=== PATIENT | female | born 1990 | race Hispanic/Latino ===

== ENCOUNTER 2021-11-07 11:57 | Emergency (ER) | payer OTHER, SELFPAY ==
[2021-11-07] VITALS (12 sets, daily range): BP systolic 80–111; BP diastolic 49–71; PULSE 71–95; RESP 16; TEMP 36.1–36.7; O2SAT 95–99; BMI 24.5
[2021-11-07 15:18] LABS: Add Manual Diff / Slide Review NO; Basophils Absolute Auto 0 /uL (0-100); Basophils Percent Auto 0.2 % (0-2); Eosinophils Absolute Auto 0 /uL (0-450); Eosinophils Percent Auto 0.4 % (2-4); Hematocrit 32.6 % (36-46); Hemoglobin 11.5 g/dL (12.0-16.0); Lymphocytes Absolute Auto 900 /uL (1100-4500); Lymphocytes Percent Auto 20.8 % (25-40); Mean Corpuscular HGB Conc 35.3 % (30-36); Mean Corpuscular Hemoglobin 30.8 PG (26-34); Mean Corpuscular Volume 87.4 fL (80-100); Monocytes Absolute Auto 400 /uL (0-900); Monocytes Percent Auto 9.3 % (3-14); Neutrophils Absolute Auto 3200 /uL (1500-7000); Neutrophils Percent Auto 69.3 % (50-75); Platelet Count 215 X10^3/uL (150-400); Red Blood Cell Count 3.73 X10^6/uL (4.0-5.2); Red Cell Distribution Width 12.6 % (11.6-14.8); White Blood Cell Count 4.6 X10^3/uL (4.5-11.0)
--- NOTE | 2021-11-07 15:23 | ED_ITS ---
HPI - Nausea/Vomiting/Diarrhea <CHELE Maier - Last Filed: 11/07/21 19:13> General Chief complaint: Nausea/Vomiting/Diarrhea Stated complaint: 13 Wks Preg/Nausea/COVID Time Seen by Provider: 11/07/21 14:57 Source: patient Mode of arrival: Ambulatory History of Present Illness HPI Narrative: 30-year-old female who is 13 weeks presents to the emergency department complaining of nausea, vomiting, and some diarrhea since this morning which is consistent with her morning sickness. She reports that she has been unable to keep anything down today, she also reports that her urine is darker in color than usual. Patient denies any vaginal bleeding, abdominal pain, or cramping. Patient denies any recent fever. Patient does endorse testing positive for COVID on 10/26/2021 but states that her symptoms have resolved. Patient endorses feeling fatigued, more tired than usual, and having constant nausea. She denies any syncope, weakness, shortness of breath, chest pain, or any other symptoms. Related Data Previous Rx's Medication Instructions Recorded ondansetron 4 mg disintegrating 4 mg PO Q8H PRN #14 tab 11/07/21 tablet Allergies Allergy/AdvReac Type Severity Reaction Status Date / Time ciprofloxacin [From Cipro] Allergy Verified 11/07/21 12:36 Review of Systems <CHELE Maier - Last Filed: 11/07/21 19:13> Review of Systems Narrative: General: denies fever, chills Head/Neck: denies headache, neck pain Eyes: denies visual changes, eye pain Cardio: denies chest pain, palpitations Respiratory: denies shortness of breath, cough GI: denies abdominal pain, endorses having nausea, vomiting, and diarrhea since this morning : denies dysuria, hematuria MSK: denies joint pain, muscle weakness Skin: denies rash, itching Neuro: denies numbness, tingling Patient History <CHELE Maier - Last Filed: 11/07/21 19:13> Social History Smoking Status: Unknown if ever smoked Smoking Status: Unknown if ever smoked alcohol intake frequency: holidays/special occasions only Substance Use Type: does not use Exam <CHELE Maier - Last Filed: 11/07/21 19:13> Narrative Exam Narrative: Independently reviewed vitals signs and nursing notes. General: Awake, alert, nontoxic, no cardiorespiratory distress, appears tired Head/Neck: Atraumatic, neck full range of motion Eyes: EOMI, conjunctiva normal Nose: nares patent, no rhinorrhea Mouth/Throat: moist mucus membranes, posterior pharynx normal, no oral lesions Cardio: Regular rate and rhythm, no peripheral edema Respiratory: respirations unlabored without wheezing, stridor, or rales. No retractions. GI: Abdomen nontender, gravid MSK: Moves all extremities, neurovascularly intact Skin: Normal capillary refill, no rash Neuro: Normal speech and cognition, normal gait Initial Vital Signs Initial Vital Signs: Vital Signs Temperature 97.0 F L 11/07/21 12:36 Pulse Rate 95 H 11/07/21 12:36 Respiratory Rate 16 11/07/21 12:36 Blood Pressure 102/67 11/07/21 12:36 Pulse Oximetry 96 11/07/21 12:36 <Debra Sierra DO - Last Filed: 11/08/21 03:25> Initial Vital Signs Initial Vital Signs: Vital Signs Temperature 97.0 F L 11/07/21 12:36 Pulse Rate 95 H 11/07/21 12:36 Respiratory Rate 16 11/07/21 12:36 Blood Pressure 102/67 11/07/21 12:36 Pulse Oximetry 96 11/07/21 12:36 Course <CHELE Maier - Last Filed: 11/07/21 19:13> Orders Ordered: Discontinued Medications Acetaminophen (Acetaminophen 325 Mg Tablet) 975 mg PO NOW ONE Stop: 11/07/21 16:45 Last Admin: 11/07/21 16:48 Dose: 975 mg Documented by: [email or web address] Sodium Chloride (Normal Saline 0.9%) 500 mls @ 1,000 mls/hr IV BOLUS ONE Stop: 11/07/21 15:34 Last Infusion: 11/07/21 16:08 Dose: 0 mls/hr Documented by: [email or web address] Admin: 11/07/21 15:36 Dose: 1,000 mls/hr Documented by: ESNODGRASS Sodium Chloride (Normal Saline 0.9%) 1,000 mls @ 1,000 mls/hr IV BOLUS ONE Stop: 11/07/21 17:43 Last Infusion: 11/07/21 18:37 Dose: 0 mls/hr Documented by: Admin: 11/07/21 16:48 Dose: 1,000 mls/hr Documented by: TIMBO Sodium Chloride (Normal Saline 0.9%) 1,000 mls @ 1,000 mls/hr IV BOLUS ONE Stop: 11/07/21 18:14 Ondansetron HCl (Ondansetron 4 Mg/2 Ml Inj) 4 mg IV NOW ONE Stop: 11/07/21 15:06 Last Admin: 11/07/21 15:35 Dose: 4 mg Documented by: TIMBO Ondansetron HCl (Ondansetron 4 Mg/2 Ml Inj) 4 mg IV NOW ONE Stop: 11/07/21 17:16 Reevaluation(s) Reevaluation #1: Patient reports she is doing better after 500 mL of normal saline, and Zofran patient was having headache still, she was given 975 mg of Tylenol, 4 more mg of Zofran and 1 L of normal saline for a total of 1.5 L of normal saline. Vital Signs Vital signs: Vital Signs - 8 hr 11/07/21 12:36 11/07/21 14:18 11/07/21 14:19 Temperature 97.0 F L Pulse Rate 95 H 71 72 Respiratory Rate 16 Blood Pressure 102/67 109/71 Pulse Oximetry 96 98 98 11/07/21 14:30 11/07/21 15:00 11/07/21 15:30 Temperature Pulse Rate 79 74 71 Respiratory Rate Blood Pressure 101/64 86/53 L 90/55 L Pulse Oximetry 95 97 97 11/07/21 16:00 11/07/21 16:30 11/07/21 17:00 Temperature Pulse Rate 76 76 73 Respiratory Rate Blood Pressure 102/64 91/54 L 80/49 L Pulse Oximetry 98 98 99 11/07/21 17:12 11/07/21 17:13 11/07/21 18:45 Temperature 98.1 F Pulse Rate 89 Respiratory Rate Blood Pressure 111/65 Pulse Oximetry 98 <Debra Sierra DO - Last Filed: 11/08/21 03:25> Orders Ordered: Discontinued Medications Acetaminophen (Acetaminophen 325 Mg Tablet) 975 mg PO NOW ONE Stop: 11/07/21 16:45 Last Admin: 11/07/21 16:48 Dose: 975 mg Documented by: TIMBO Sodium Chloride (Normal Saline 0.9%) 500 mls @ 1,000 mls/hr IV BOLUS ONE Stop: 11/07/21 15:34 Last Infusion: 11/07/21 16:08 Dose: 0 mls/hr Documented by: Admin: 11/07/21 15:36 Dose: 1,000 mls/hr Documented by: TIMBO Sodium Chloride (Normal Saline 0.9%) 1,000 mls @ 1,000 mls/hr IV BOLUS ONE Stop: 11/07/21 17:43 Last Infusion: 11/07/21 18:37 Dose: 0 mls/hr Documented by: Admin: 11/07/21 16:48 Dose: 1,000 mls/hr Documented by: TIMBO Sodium Chloride (Normal Saline 0.9%) 1,000 mls @ 1,000 mls/hr IV BOLUS ONE Stop: 11/07/21 18:14 Ondansetron HCl (Ondansetron 4 Mg/2 Ml Inj) 4 mg IV NOW ONE Stop: 11/07/21 15:06 Last Admin: 11/07/21 15:35 Dose: 4 mg Documented by: TMIBO Ondansetron HCl (Ondansetron 4 Mg/2 Ml Inj) 4 mg IV NOW ONE Stop: 11/07/21 17:16 Vital Signs Vital signs: Vital Signs - 8 hr 11/07/21 12:36 11/07/21 14:18 11/07/21 14:19 Temperature 97.0 F L Pulse Rate 95 H 71 72 Respiratory Rate 16 Blood Pressure 102/67 109/71 Pulse Oximetry 96 98 98 11/07/21 14:30 11/07/21 15:00 11/07/21 15:30 Temperature Pulse Rate 79 74 71 Respiratory Rate Blood Pressure 101/64 86/53 L 90/55 L Pulse Oximetry 95 97 97 11/07/21 16:00 11/07/21 16:30 11/07/21 17:00 Temperature Pulse Rate 76 76 73 Respiratory Rate Blood Pressure 102/64 91/54 L 80/49 L Pulse Oximetry 98 98 99 11/07/21 17:12 11/07/21 17:13 11/07/21 18:45 Temperature 98.1 F Pulse Rate 89 Respiratory Rate Blood Pressure 111/65 Pulse Oximetry 98 MDM - Nausea/Vomiting/Diarrhea <Lorena Sibley, [facility] - Last Filed: 11/07/21 19:13> Lab Data Result diagrams: 11/07/21 15:05 11/07/21 15:05 Labs: Lab Results 11/07/21 11/07/21 11/07/21 Range/Units 15:05 15:05 15:40 WBC 4.6 (4.5-11.0) X10^3/uL RBC 3.73 L (4.0-5.2) X10^6/uL Hgb 11.5 L (12.0-16.0) g/dL Hct 32.6 L (36-46) % MCV 87.4 (80-100) fL MCH 30.8 (26-34) PG MCHC 35.3 (30-36) % RDW 12.6 (11.6-14.8) % Plt Count 215 (150-400) X10^3/uL Neut % (Auto) 69.3 (50-75) % Lymph % (Auto) 20.8 L (25-40) % [place] % (Auto) 9.3 (3-14) % Eos % (Auto) 0.4 L (2-4) % Baso % (Auto) 0.2 (0-2) % Neut # (Auto) 3200 (8922-0766) /uL Lymph # (Auto) 900 L (8159-3140) /uL [place] # (Auto) 400 (0-900) /uL Eos # (Auto) 0 (0-450) /uL Baso # (Auto) 0 (0-100) /uL Sodium 135 L (137-145) mmol/L Potassium 3.3 L (3.4-5.1) mmol/L Chloride 94 L (98-107) mmol/L Carbon Dioxide 34 H (22-32) mmol/L BUN 10 (7-17) mg/dL Creatinine 0.56 (0.52-1.04) mg/dL Estimated GFR > 60.0 (>60) mL/min BUN/Creatinine Ratio 17.9 (6-22) Glucose 91 (70-100) mg/dL Calcium 9.2 (8.4-10.2) mg/dL Total Bilirubin 0.9 (0.2-1.3) mg/dL AST 55 H (14-36) IU/L ALT 46 H (<35) IU/L Alkaline Phosphatase 79 (38-126) U/L Total Protein 7.7 (6.3-8.2) g/dL Albumin 4.0 (3.5-5.0) g/dL Globulin 3.7 (1.7-4.1) g/dL Albumin/Globulin Ratio 1.1 (1.0-2.8) HCG, Quant 994888 mIU/mL Chlamy pneumoniae PCR Not detected (Not Detect) Adenovirus (PCR) Not detected (Not Detect) B. pertussis DNA (PCR) Not detected (Not Detecte) B.parapertussis DNA PCR Not detected (Not Detecte) Coronavirus OC43 (PCR) Not detected (Not Detect) Coronavirus HKU1 (PCR) Not detected (Not Detect) Coronavirus 229E (PCR) Not detected (Not Detect) SARS-CoV-2 (PCR) Detected H (Not Detecte) Coronavirus NL63 (PCR) Not detected (Not Detect) Human Metapneumovir PCR Not detected (Not Detect) Influenza Type A (PCR) Not detected (Not Detect) Influenza Type B (PCR) Not detected (Not Detect) M. pneumoniae (PCR) Not detected (Not Detect) Parainfluenza 1 (PCR) Not detected (Not Detect) Parainfluenza 2 (PCR) Not detected (Not Detect) Parainfluenza 3 (PCR) Not detected (Not Detect) Parainfluenza 4 (PCR) Not detected (Not Detect) RSV (PCR) Not detected (Not Detect) Entero/Rhino (PCR) Not detected (Not Detect) [facility] Narrative Medical decision making narrative: 30-year-old female presents to the emergency department for nausea and vomiting related to . She tested positive for COVID on 10/26/21 and has resolved most of her symptoms but complains of nausea and vomiting today in inability to keep anything down. She has been afebrile, states this is the same as her normal morning sickness. Her COVID PCR was positive today. No other viruses tested positive on her respiratory panel. Patient's 13+ weeks , without any vaginal bleeding or abdominal pain. She was given a total of 8 mg of Zofran, 1.5 L of normal saline, and 975 mg of Tylenol with marked improvement in her symptoms. Patient's respiratory panel tested positive for COVID, she is unvaccinated for COVID and tested positive on 10/26/2021. She denies any shortness of breath, chest pain, difficulty breathing, dizziness, feeling faint, or other. Patient has been afebrile without any respiratory symptoms. Instructed patient to follow-up with her manager rehab tomorrow, in to have a low threshold to return to the emergency department for any worsening. She is prescribed Zofran ODT and will follow-up with her manager rehab tomorrow. Patient was instructed to continue taking her vitamin, trying to stay hydrated, and taking Tylenol as needed for her symptoms. Her lab work was unremarkable, as was her UA. Patient is appropriate and amenable to discharge home. Vital signs are stable on repeat examination is unremarkable. Patient has been informed of results. Patient has been given strict return to ER precautions for any new or worsening symptoms. Patient understands to follow up closely with outpatient providers as instructed. Patient understands plan and agrees to discharge home. All questions and concerns answered at this time. <Debra Sierra, DO - Last Filed: 11/08/21 03:25> Lab Data Labs: Lab Results 11/07/21 11/07/21 11/07/21 Range/Units 15:05 15:05 15:40 WBC 4.6 (4.5-11.0) X10^3/uL RBC 3.73 L (4.0-5.2) X10^6/uL Hgb 11.5 L (12.0-16.0) g/dL Hct 32.6 L (36-46) % MCV 87.4 (80-100) fL MCH 30.8 (26-34) PG MCHC 35.3 (30-36) % RDW 12.6 (11.6-14.8) % Plt Count 215 (150-400) X10^3/uL Neut % (Auto) 69.3 (50-75) % Lymph % (Auto) 20.8 L (25-40) % Lenoir % (Auto) 9.3 (3-14) % Eos % (Auto) 0.4 L (2-4) % Baso % (Auto) 0.2 (0-2) % Neut # (Auto) 3200 (0158-8817) /uL Lymph # (Auto) 900 L (3554-1879) /uL [place] # (Auto) 400 (0-900) /uL Eos # (Auto) 0 (0-450) /uL Baso # (Auto) 0 (0-100) /uL Sodium 135 L (137-145) mmol/L Potassium 3.3 L (3.4-5.1) mmol/L Chloride 94 L (98-107) mmol/L Carbon Dioxide 34 H (22-32) mmol/L BUN 10 (7-17) mg/dL Creatinine 0.56 (0.52-1.04) mg/dL Estimated GFR > 60.0 (>60) mL/min BUN/Creatinine Ratio 17.9 (6-22) Glucose 91 (70-100) mg/dL Calcium 9.2 (8.4-10.2) mg/dL Total Bilirubin 0.9 (0.2-1.3) mg/dL AST 55 H (14-36) IU/L ALT 46 H (<35) IU/L Alkaline Phosphatase 79 (38-126) U/L Total Protein 7.7 (6.3-8.2) g/dL Albumin 4.0 (3.5-5.0) g/dL Globulin 3.7 (1.7-4.1) g/dL Albumin/Globulin Ratio 1.1 (1.0-2.8) HCG, Quant 629963 mIU/mL Chlamy pneumoniae PCR Not detected (Not Detect) Adenovirus (PCR) Not detected (Not Detect) B. pertussis DNA (PCR) Not detected (Not Detecte) B.parapertussis DNA PCR Not detected (Not Detecte) Coronavirus OC43 (PCR) Not detected (Not Detect) Coronavirus HKU1 (PCR) Not detected (Not Detect) Coronavirus 229E (PCR) Not detected (Not Detect) SARS-CoV-2 (PCR) Detected H (Not Detecte) Coronavirus NL63 (PCR) Not detected (Not Detect) Human Metapneumovir PCR Not detected (Not Detect) Influenza Type A (PCR) Not detected (Not Detect) Influenza Type B (PCR) Not detected (Not Detect) M. pneumoniae (PCR) Not detected (Not Detect) Parainfluenza 1 (PCR) Not detected (Not Detect) Parainfluenza 2 (PCR) Not detected (Not Detect) Parainfluenza 3 (PCR) Not detected (Not Detect) Parainfluenza 4 (PCR) Not detected (Not Detect) RSV (PCR) Not detected (Not Detect) Entero/Rhino (PCR) Not detected (Not Detect) Discharge Plan Departure Patient Disposition: Home Clinical Impression: Nausea and vomiting during Instructions: Hyperemesis Gravidarum, DI for Dehydration -- Adult Activity Restrictions/Additional Instructions: *You have been diagnosed with a COVID positive test, nausea vomiting related to , possible hyperemesis gravidarum. All of your lab work is reassuring that there is nothing dangerous going on. Please try to drink more water than usual, take her vitamins, try to eat fresh fruits and vegetables. Please follow-up with her manager re[facility] tomorrow and let her know that your workup is okay, your given 1.5 L of hydration and I will send a prescription of Zofran to your pharmacy. I hope you feel better soon, if you develop a fever or any worsening of her symptoms and your unable to keep anything down please return to the emergency department. *What to do: *Please continue to take your regular medications as directed. [x ] New medication prescriptions sent to your pharmacy: [ [facility]] [ ] New medication written as a paper prescription [ ] No new medications given *Please follow up with your primary care provider in 2-3 days, call for an appointment. Let them know you were seen in the Emergency Department and that we ask that you be seen in follow up. We will electronically transmit a record of today's note if your PCP is in our system *If you do not have a primary care provider please contact the [facility] Resource line at [phone]. They will ask some questions about your medical history and help get you set up with a doctor in the community. *Return to Emergency Department if you should have any new, worsening or concerning symptoms, such as [fever greater than 101F, chills, worsening pain, persistent vomiting or other bothersome symptoms] Prescriptions: New ondansetron 4 mg tablet,disintegrating 4 mg PO Q8H PRN (Reason: nausea and vomiting) Qty: 14 0RF <Debra Sierra DO - Last Filed: 11/08/21 03:25> Cosign ED Attending Paula Attestation: I was immediately available in the department for consultation. Documentation has been reviewed. I agree with assessment and plan.
[2021-11-07 15:24] LABS: Alanine Aminotransferase 46 IU/L (<35); Albumin Globulin Ratio 1.1 (1.0-2.8); Alkaline Phosphatase 79 U/L (38-126); Aspartate Aminotransferase 55 IU/L (14-36); BUN Creatinine Ratio 17.9 (6-22); Bilirubin Total 0.9 mg/dL (0.2-1.3); Blood Urea Nitrogen 10 mg/dL (7-17); Calcium 9.2 mg/dL (8.4-10.2); Carbon Dioxide 34 mmol/L (22-32); Chloride 94 mmol/L (98-107); Estimated Glomerular Filt Rate > 60.0 mL/min (>60); Globulin 3.7 g/dL (1.7-4.1); Glucose 91 mg/dL (70-100); HEMOLYSIS < 15 (0-50); Potassium 3.3 mmol/L (3.4-5.1); Sodium 135 mmol/L (137-145); Total Protein 7.7 g/dL (6.3-8.2)
[2021-11-07] MEDS: ONDANSETRON 4 MG/2 ML INJ IV (15:35)
[2021-11-07] MEDS: SODIUM CHLORIDE 0.9% 500 ML 1000 ML IV (15:36)
[2021-11-07 16:05] LABS: HCG Quantitative /Beta subunit 174650 mIU/mL
[2021-11-07] MEDS: SODIUM CHLORIDE 0.9% 1,000 ML 1000 ML IV (16:48)
[2021-11-07] MEDS: ACETAMINOPHEN 325 MG TABLET 975 MG PO (16:48)
[2021-11-07 17:39] LABS: Adenovirus Not Detected (Not Detect)
[2021-11-07 17:40] LABS: B. parapertussis Not Detected (Not Detecte); Bordetella pertussis Not Detected (Not Detecte); Chlamydophila pneumoniae Not Detected (Not Detect); Coronavirus 229E Not Detected (Not Detect); Coronavirus HKU1 Not Detected (Not Detect); Coronavirus NL 63 Not Detected (Not Detect); Coronavirus OC43 Not Detected (Not Detect); Human Metapneumovirus Not Detected (Not Detect); Human Rhinovirus/Enterovirus Not Detected (Not Detect); Influenza A Not Detected (Not Detect); Influenza B Not Detected (Not Detect); Mycoplasma pneumoniae Not Detected (Not Detect); Parainfluenza Virus 1 Not Detected (Not Detect); Parainfluenza Virus 2 Not Detected (Not Detect); Parainfluenza Virus 3 Not Detected (Not Detect); Parainfluenza Virus 4 Not Detected (Not Detect); Respiratory Syncytial Virus Not Detected (Not Detect); SARS- CoV-2 Detected (Not Detecte)
== END 2021-11-07 18:46 | disposition home or self-care (01) ==
PROVIDERS: Emergency Provider Nurse Practitioner Critical Care Medicine; Referring Provider Nurse Practitioner Obstetrics & Gynecology
DX: O98.511 Other viral diseases complicating pregnancy, first trimester (principal); U07.1 COVID-19; O21.9 Vomiting of pregnancy, unspecified; Z3A.13 13 weeks gestation of pregnancy
CPT/HCPCS: 36415; 80053; 84702; 85025; 87633; 96361; 96374; 99284; J2405

== ENCOUNTER → 2021-12-30 11:38 | Outpatient (CLI) | payer OTHER, SELFPAY ==
--- NOTE | 2021-12-30 | DI.US.S_ITS ---
PROCEDURE: US OB >= 14 WEEKS FETUS INDICATIONS: 20 WEEK ANATOMY. OUTSIDE/PRIOR DATING DATA: Last menstrual period (LMP): 08/07/2021 LMP-based estimated date of delivery (ALEX): 05/14/2022 First dating scan (date and location): 12/30/2021 Estimated date of delivery (ALEX) from first dating scan: 05/18/2022 TECHNIQUE: Real-time scanning was performed of the fetus, with image documentation and biometric measurements. Endovaginal scanning: Not performed. COMPARISON: None. FINDINGS: General: A single living intrauterine gestation is present. Presentation: Transverse variable Placenta: Placental position is posterior, without previa. Lower please signal margin approximately 3.1 cm from the internal cervical os. Amniotic fluid index: 11.6 cm, normal range is 5-24 cm. Single deepest vertical pocket is 3.9 cm. heart rate: 143 beats per minute. Maternal cervical canal: 5.1 cm long. Normal lower limit is 2.5 cm. biometrics: Biparietal diameter: 4.6 cm, 19 weeks 6 days Head circumference: 17.2 cm, 19 weeks 5 days Abdominal circumference: 14.7 cm, 20 weeks 0 days Femur length: 3.5 cm, 20 weeks 6 days Clinically estimated gestational age: 20 weeks 5 days Composite gestational age from present scan: 20 weeks 1 day Estimated weight and percentile: 346 g, 25th percentile Anatomic survey: Neuro: Ventricles are non-dilated at less than 10 mm. Cisterna magna is normal at 3-11 mm. Cerebellum is normal in size and morphology. Nuchal skin fold: Normal at less than 6 mm between 14-21 weeks gestational age. Face: Facial profile is normal. nose/lips not well seen. Spine: No evidence for spina bifida. Heart: heart and ventricular outflow tracts are not well visualized due to positioning. Diaphragm: Diaphragm is intact. Stomach: Left-sided stomach is present. Kidneys: Kidneys are not well seen. Cord: 3-vessel cord has orthotopic insertion. Bladder: Normal in size. Extremities: All 4 extremities identified. IMPRESSION: 1. Single live intrauterine with ultrasound estimated gestational age of 20 weeks 1 day giving an ultrasound ALEX of 05/18/2022. 2. nose/lips, kidneys, and heart are not well visualized due to positioning. Recommend follow-up exam. 3. Otherwise, anatomic survey within normal limits. We strive to produce accurate, complete, and clear reports of imaging services. To assist us in improving patient care, this report was composed using standard report templates and voice recognition software. Therefore, it may contain abnormal punctuation, insertions and/or omissions. Occasional wrong-word or sound-alike substitutions may occur. Though we review the report and make efforts to correct it, we do recommend that the report be read carefully in proper context to recognize any text inaccuracies. Dictated by: Jose Rafael Gutierrez M.D. on 12/30/2021 at 16:52 Approved by: Jose Rafael Gutierrez M.D. on 12/30/2021 at 16:58
== END ==
PROVIDERS: Referring Provider Nurse Practitioner Obstetrics & Gynecology; Visit Provider Nurse Practitioner Obstetrics & Gynecology
DX: Z34.92 Encounter for supervision of normal pregnancy, unspecified, second trimester (principal); Z3A.20 20 weeks gestation of pregnancy
CPT/HCPCS: 76811

== ENCOUNTER → 2022-02-11 07:49 | Outpatient (CLI) | payer OTHER, SELFPAY ==
[2022-02-11 08:39] LABS: Hematocrit 27.2 % (36-46); Hemoglobin 9.4 g/dL (12.0-16.0); Mean Corpuscular HGB Conc 34.4 % (30-36); Mean Corpuscular Hemoglobin 31.1 PG (26-34); Mean Corpuscular Volume 90.6 fL (80-100); Platelet Count 223 X10^3/uL (150-400); Red Blood Cell Count 3.01 X10^6/uL (4.0-5.2); Red Cell Distribution Width 13.3 % (11.6-14.8); White Blood Cell Count 6.7 X10^3/uL (4.5-11.0)
[2022-02-11 08:57] LABS: Glucose Fasting 91 mg/dL (70-100)
[2022-02-11 09:54] LABS: Glucose 1 Hour 168 mg/dL (70-170)
[2022-02-11 10:24] LABS: Glucose Tol Interpretation INTERPRETATION
--- NOTE | 2022-02-11 10:26 | DI.US.S_ITS ---
PROCEDURE: US OB FOLLOW UP INDICATIONS: FOLLOW UP FROM SCAN 12/30/21 OUTSIDE/PRIOR DATING DATA: Last menstrual period (LMP): 08/07/2021. LMP-based estimated date of delivery (ALEX): 05/14/2022. First dating scan (date and location): 12/30/2021. Estimated date of delivery (ALEX) from first dating scan: 05/18/2022. The calculations are made using the ultrasound ALEX of 05/18/2022. TECHNIQUE: Real-time scanning was performed of the fetus, with image documentation and biometric measurements. COMPARISON: [facility], , US OB >= 14 WEEKS FETUS, 12/30/2021, 12:12. FINDINGS: General: A single living intrauterine gestation is present. Presentation: Vertex. Placenta: Placental position is posterior , without previa. Amniotic fluid index: 14.3 cm, normal range is 5-24 cm. Single deepest vertical pocket is 4.0 cm. heart rate: 135 beats per minute. Maternal cervical canal: 4.3 cm long. Normal lower limit is 2.5 cm. biometrics: Composite gestational age from initial scan: 26 weeks 2 days Other: Normal four-chamber heart and ventricular outflow tracts on current examination. Normal nodes and lips including facial profile. Normal kidneys bilaterally. IMPRESSION: 1. A single living intrauterine gestation again demonstrated. 2. Normal heart, face and kidneys. We strive to produce accurate, complete, and clear reports of imaging services. To assist us in improving patient care, this report was composed using standard report templates and voice recognition software. Therefore, it may contain abnormal punctuation, insertions and/or omissions. Occasional wrong-word or sound-alike substitutions may occur. Though we review the report and make efforts to correct it, we do recommend that the report be read carefully in proper context to recognize any text inaccuracies. Dictated by: John Galo M.D. on 02/11/2022 at 13:13 Approved by: John Galo M.D. on 02/11/2022 at 13:18
[2022-02-11 12:05] LABS: Glucose 2 Hour 107 mg/dL (70-140)
== END ==
PROVIDERS: Referring Provider Nurse Practitioner Obstetrics & Gynecology; Visit Provider Nurse Practitioner Obstetrics & Gynecology
DX: Z36.89 Encounter for other specified antenatal screening; Z13.1 Encounter for screening for diabetes mellitus; Z67.91 Unspecified blood type, Rh negative; Z36.2 Encounter for other antenatal screening follow-up; Z3A.26 26 weeks gestation of pregnancy
CPT/HCPCS: 36415; 76816; 82951; 82952; 85027; 86850

== ENCOUNTER → 2022-04-21 19:29 | Outpatient (ROUT) | payer OTHER, SELFPAY | PROVIDERS: Visit Provider Nurse Practitioner Obstetrics & Gynecology | DX: Z34.90 Encounter for supervision of normal pregnancy, unspecified, unspecified trimester (principal); Z36.85 Encounter for antenatal screening for Streptococcus B; Z3A.36 36 weeks gestation of pregnancy | CPT/HCPCS: 87081 ==

== ENCOUNTER 2022-05-15 06:58 | Inpatient (IN) | payer OTHER, SELFPAY ==
--- NOTE | 2022-05-15 07:08 | PM.OBHP.1 ---
OB HPI Date/Time Date of admission: 05/15/22 Date Patient Seen: 05/15/22 Time Patient Seen: 07:08 History of Present Condition Chief complaint: NST : 5 Para: 3 Estimated Date of Delivery: 05/14/22 Estimated Gestational Age (weeks): 40.1 Narrative: Nikki Gold is a 31 year old female @[id number] by LMP and 10wk US who presents for elective IOL. care w/ CNM complicated by anemia for which she received IV Fe. Desires low intervention, unmedicated . Desires bilateral tubal ligation after giving and OC OB is aware. is present and supportive. Indications Indication for induction OB: maternal discomfort History of Present care: good care, initiated at week # (10), number of visits (8) and pounds weight gain (13) Dating criteria: LMP confirmed by 1st trimester US Ultrasounds: normal mid trimester US Obstetrical complications: none and other (anemia) Medical complications: none Preadmission Labs Blood type: B (-) negative -: Antibody screen: negative, GBS status: negative, HBsAG: negative, HIV: negative and RPR/VDLR: negative -: Chlamydia screen: not detected and Gonorrhea screen: not detected -: Rubella: not immune and Varicella: immune HCT: 28.6 HCAB: negative PAP: Normal Narrative: 2hr gtt: 91/168/107 Prior (ies) History: 12/2010-SAB (miscarriage), 8wks 03/06/2012- (vaginal delivery), Anaycristy Asif, 39wks, 4 hr15 min, Male, 7 lbs 3 oz, Hospital 12/02/2016- (vaginal delivery), Ailyn Gold, 40, 4 hr1 hr, Female,8 lbs 7 oz, Hospital - (vaginal delivery), Kayli Sochor, 39, 4 hr20 hr, Intact,Male, 8 lbs 6 oz, Hospital Evaluation Evaluation Baseline heart rate: 125 Variability: Moderate (11-25) monitor accelerations: Present Monitor Decelerations: Absent Contraction Frequency (minutes): 0 Uterine Contraction Intensity: Mild Status: Category l Dilation (cm): 4 Effacement (%): 75 Dilation: 3-4 cm Effacement: 60-70% station: -3 Position of cervix: posterior Consistency: soft Goodman score: 6 PFSH Family History (Updated 05/15/22 @ 07:46 by Fior Yoon CNM) Father Diabetes mellitus Social History (Updated 05/15/22 @ 07:46 by Fior Yoon CNM) marital status: number of children: 3 household members: family lives independently: Yes caregiver/support person: No Smoking Status: Never smoker Meds Home Medications and Allergies Home Medications Medication Instructions Recorded Confirmed Type No Known Home Medications 05/15/22 05/15/22 History Allergies Allergy/AdvReac Type Severity Reaction Status Date / Time ciprofloxacin [From Cipro] Allergy Severe Anaphylaxis Verified 05/15/22 08:08 Review of Systems Review of Systems ROS: Yes All systems reviewed with the patient and are negative except as otherwise documented OB Exam Resp Effort & Inspection: normal respiratory effort Auscultation: clear to auscultation bilaterally Cardio Rate: regular rate Rhythm: regular rhythm Heart Sounds: S1 normal and S2 normal Objective Labs Result Diagrams: 05/15/22 07:54 Labs: SARS-CoV-2: Negative Assessment and Plan Assessment and Plan Assessment and Plan narrative: A: Term Multipara Elective IOL Anemia in - Tx w/ IV Fe RH neg- received RhoGAM Rubella NONimmune No indication for GBS prophylaxis Cat I FHR tracing P: Admit, routine orders. Pitocin per protocol. Labor support PRN. OC OB notified of patient's desire for a BTL. Reassess in 4 hours and will consider AROM at that time.
[2022-05-15 08:04] LABS: Add Manual Diff / Slide Review NO; Basophils Absolute Auto 0 /uL (0-100); Basophils Percent Auto 0.6 % (0-2); Eosinophils Absolute Auto 200 /uL (0-450); Eosinophils Percent Auto 2.3 % (2-4); Hemoglobin 10.7 g/dL (12.0-16.0); Lymphocytes Absolute Auto 1600 /uL (1100-4500); Lymphocytes Percent Auto 23.2 % (25-40); Mean Corpuscular HGB Conc 35.5 % (30-36); Mean Corpuscular Hemoglobin 33.6 PG (26-34); Mean Corpuscular Volume 94.5 fL (80-100); Monocytes Absolute Auto 500 /uL (0-900); Monocytes Percent Auto 6.7 % (3-14); Neutrophils Absolute Auto 4600 /uL (1500-7000); Neutrophils Percent Auto 67.2 % (50-75); Platelet Count 217 X10^3/uL (150-400); Red Blood Cell Count 3.18 X10^6/uL (4.0-5.2); Red Cell Distribution Width 14.9 % (11.6-14.8); White Blood Cell Count 6.9 X10^3/uL (4.5-11.0)
[2022-05-15] MEDS: LACTATED RINGERS 1,000 ML 100 ML IV (08:14)
[2022-05-15 08:26] VITALS: BP 103/59
[2022-05-15 08:28] LABS: COVID19 -Nasal RAPID Negative (Negative)
[2022-05-15] MEDS: OXYTOCIN PREMIX 30 UNIT/500 ML PLAST..BAG IV (08:35)
--- NOTE | 2022-05-15 10:45 | PM.OBPNLAB ---
Date/Time Date Patient Seen: 05/15/22 Time Patient Seen: 10:45 Pain Control Pain control: tolerating well Comments: Feeling mild contractions, coping well. Consents to AROM. VS: BP 100/55mmHg, HR 79bpm, T 36.7C Temporal Pelvic Exam Dilation (cm): 4.5 Effacement (%): 80 station: -3 Amniotic membrane status: Ruptured (AROM, clear) Contractions Contractions on admission: none Monitor mode: External Pitocin rate (mU/min): 6 Contraction frequency (min): 3 Contraction duration (min): 1 Contraction intensity: Mild Status status: Category l Heart Rate Baseline: 125 Monitor Accelerations: Present Monitor Decelerations: Absent Monitor Variability: Moderate Assessment and Plan Assessment: induction ongoing Plan: continuous present management Comments: Encourage upright positions for the next 30 minutes. Labor support PRN. Continue pitocin titration, per protocol. Reassess in 4 hours or sooner, PRN.
--- NOTE | 2022-05-15 14:20 | PM.OBPRVD ---
Events: Labor Induction (pitocin (max 8mu/min), AROM) Labor & Delivery Delivery date: 05/15/22 Intrapartal Events: None Induction method: per pitocin protocol Delivery augmentation: rupture of membranes Delivery monitor: external FHT and external uterine Route of delivery: Episiotomy description: None L&D Laceration Description: None Estimated blood loss (mL): 375 Quantitative Blood Loss: 375 Anesthesia Type: None Narrative: Nikki labored will with pitocin at a max does of 8mu/min. She began to feel increasing rectal pressure and a spontaneous urge to push and was presumed to be complete. During second stage, contractions increased in frequency and pitocin was decreased to 4mu/min, then turned off. NSVB of a vigorous baby girl in LANDRY position, sommersaulted through a single loose nuchal cord. The shoulders delivered without additional maneuvers. was placed on maternal abdomen for drying and skin to skin. The remaining pitocin (30 units in 500mL) was started at 350mL/hr for AMTSL. After 8 minutes, cord was double clamped by CNM and cut by FOB. Cord blood sample was collected. Gentle cord traction and single maternal push led to spontaneous, Schultze delivery of an apparently intact placenta, membranes and 3VC. Fundus immediately firm and bleeding minimal. QBL 375mL. Vagina and perineum inspected and intact. Both mother and baby stable and skin to skina s I left the room. [place] Baby 1: Infant gender: Female Presentation: vertex Position: Left Occiput Anterior Placenta delivery description: Spontaneous and Normal Configuration Cord Vessel Description: 3 Vessels and Loose score (1 min): 8 score (5 min): 9 weight: 3.717 kg Plan for aftercare: Routine care and Other (Consulted [facility] for bilateral tubal ligation who spoke with Nikki- Interval sterilization to be scheduled by 's office. )
[2022-05-15] MEDS: DERMOPLAST SPRAY 20% 60 ML 1 SPRAY TOP (16:02)
[2022-05-15] MEDS: LANOLIN OINT 7 GM 1 APPLIC TOP (16:03)
[2022-05-15] MEDS: KETOROLAC 30 MG/ML VIAL IV (16:03)
--- NOTE | 2022-05-15 17:40 | PM.OBPN.1 ---
Subjective - OB Subjective Date Patient Seen: 05/15/22 Time Patient Seen: 15:00 Interval history: Consult requested for possible tubal ligation. Patient delivered earlier today and is expressed a desire for permanent sterilization. HHS Form 687 has been completed and the patient has been counseled by her financial management analyst, Fior Yoon. Objective Labs Result Diagrams: 05/15/22 07:54 Labs: Laboratory Results - last 24 hr 05/15/22 05/15/22 05/15/22 07:54 07:54 07:54 WBC 6.9 RBC 3.18 L Hgb 10.7 L Hct 30.0 L MCV 94.5 MCH 33.6 MCHC 35.5 RDW 14.9 H Plt Count 217 Neut % (Auto) 67.2 Lymph % (Auto) 23.2 L [place] % (Auto) 6.7 Eos % (Auto) 2.3 Baso % (Auto) 0.6 Neut # (Auto) 4600 Lymph # (Auto) 1600 [place] # (Auto) 500 Eos # (Auto) 200 Baso # (Auto) 0 SARS-CoV-2 (PCR) Negative Blood Type B Negative Antibody Screen Negative Assessment & Plan Plan day: 0 Comments: Discussed options for sterilization with the patient and her present. Due to a current lack of LigaSure, bilateral salpingectomy would be a difficulty and potentially dangerous procedure through a subumbilical incision and therefore tubal ligation would be the better choice for safety reasons. Unfortunately it is not as effective as bilateral salpingectomy on an interval basis and also does not mitigate potential risk for serous cystadenocarcinoma. After discussion of options with attendant risks, benefits, and potential complications, the patient opts for interval sterilization by laparoscopic bilateral salpingectomy. A case request has been submitted to surgical product sales consultant and the patient will be contacted to make arrangements for sterilization procedure approximately 6 weeks following delivery. Time Spent With Patient Time: Total time spent is greater than 50% in coordination of care (as documented) at patient's floor/unit and/or counseling patient: Time with patient: less than 15 minutes
--- NOTE | 2022-05-16 07:57 | PM.OBDS.1 ---
Discharge Providers Provider Date of admission: 05/15/22 06:58 Discharge Date: 05/16/22 Consults: 05/16/22 15:02 Consult to Application Assistant Routine Comment: Discharge provider: Fior Yoon CNM Summary Hospital Course Date Patient Seen: 05/16/22 Time Patient Seen: 07:57 Diagnoses: O80 Hospital Course: PPD1 s/p NSVB: Voiding, ambulating and independently. Tolerating a general diet. Minimal pain is well controlled with PO medication. Bleeding is light, without clots. Eager for discharge to home this morning. Peripartum Data Delivery Method: Natural Vaginal Laceration Description: None Episiotomy description: None 1: Gender: Female Disposition of : home Discharge Diagnosis (1) Encounter for full-term uncomplicated delivery: Start Date: 05/15/22 Start Time: 13:56 Status: Acute Problem Details: routine course- stable for discharge Status at Discharge Cognitive/behavioral status at discharge: oriented and calm Functional status at discharge: independent ambulation Overall status at discharge: patient is progressing back to baseline Time Spent with Patient Time attestation: Total time spent providing and/or coordinating discharge services: Objective Labs Result Diagrams: 05/15/22 07:54 Labs: Laboratory Results - last 24 hr 05/15/22 05/15/22 05/15/22 07:54 07:54 07:54 WBC 6.9 RBC 3.18 L Hgb 10.7 L Hct 30.0 L MCV 94.5 MCH 33.6 MCHC 35.5 RDW 14.9 H Plt Count 217 Neut % (Auto) 67.2 Lymph % (Auto) 23.2 L [place] % (Auto) 6.7 Eos % (Auto) 2.3 Baso % (Auto) 0.6 Neut # (Auto) 4600 Lymph # (Auto) 1600 [place] # (Auto) 500 Eos # (Auto) 200 Baso # (Auto) 0 SARS-CoV-2 (PCR) Negative Blood Type B Negative Antibody Screen Negative Exam Vital Signs (past 8 hours): BP 100/54mmHg, HR 65bpm, RR 14/min, T 97.8F Temporal, SpO2 98% Other: Fundus firm at U-1, lochia scant. Perineum intact. Discharge Plan Discharge Plan Patient Disposition: Home Discharge orders & Medications Prescriptions: New ibuprofen 600 mg Tablet 600 mg PO Q6HR PRN (Reason: Pain, Mild (1-3)) 14 Days Qty: 60 0RF Follow up/Referrals: Fior Yoon CNM [[employer] Lace Machine Operator] - (Follow-up by Telehealth , May 29, 2022 at 4:30pm Follow-up in office , June 26, 2022 at 1:30pm) Diet/Activity/Treatments Diet: Diet as Tolerated and Regular Activity: pelvic rest x 6 weeks Skin/Wound/Dressing Care Report to your healthcare provider any signs of infection, such as:: chills, fever, increased pain, unusual drainage and unusual redness Visit Report/Discharge Packet Instructions: Depression Discharge Data Attending Provider: Fior Yoon
[2022-05-16 09:07] VITALS: BP 98/63; PULSE 74; RESP 16; TEMP 36.9
[2022-05-16] MEDS: RHO(D) IMMUNE GLOBULIN 1,500 UNIT SYRINGE 1500 UNIT IM (09:24)
[2022-05-16] MEDS: MEASLES,MUMPS,RUBELLA VACC/PF 0.5 ML VIAL SUBCUT (09:25)
== END 2022-05-16 09:50 | disposition home or self-care (01) | DRG 807 ==
PROVIDERS: Admitting Provider Nurse Practitioner Obstetrics & Gynecology; Referring Provider Nurse Practitioner Obstetrics & Gynecology; Visit Provider Nurse Practitioner Obstetrics & Gynecology
DX: O99.02 Anemia complicating childbirth (principal); Z37.0 Single live birth; Z3A.40 40 weeks gestation of pregnancy; O69.81X0 Labor and delivery complicated by cord around neck, without compression, not applicable or unspecified
CPT/HCPCS: 36415; 59050; 85025; 85461; 86850; 86900; 86901; 87635; C9803; G0378; G0379; J1885; J2590; J2790

== ENCOUNTER → 2022-09-04 10:19 | Outpatient (CLI) | payer OTHER, SELFPAY ==
[2022-09-04 11:44] LABS: COVID19 -Nasal RAPID Negative (Negative)
== END ==
PROVIDERS: Visit Provider Obstetrics & Gynecology
DX: Z20.822 Contact with and (suspected) exposure to COVID-19 (principal); Z01.812 Encounter for preprocedural laboratory examination
CPT/HCPCS: 87635

== ENCOUNTER 2022-09-05 07:45 | Day surgery (SDC) | payer OTHER, SELFPAY ==
[2022-09-02 10:50] VITALS: BMI 24.7
[2022-09-05] VITALS (7 sets, daily range): BP systolic 95–104; BP diastolic 62–68; PULSE 73–100; RESP 12–20; TEMP 35.9–36.9; O2SAT 98–100; BMI 24.7
--- NOTE | 2022-09-05 | PATH_ITS ---
[facility] Accession Number: [id number] . 01 Material submitted: . fallopian tube - BILATERAL FALLOPIAN TUBES . 01 Clinical history: . encounter for sterilization . 01 Diagnosis: Bilateral Fallopian Tubes, Bilateral Salpingectomy: Benign bilateral fallopian tubes and paratubal cysts. Negative for dysplasia and malignancy. MRV 09/08/2022 1436 Local . 01 Electronically signed: . Bridgette Ramírez MD, Pathologist NPI- [id number] . 01 Gross description: . The specimen is received in formalin, labeled with the patient's name, , and bilateral fallopian tubes, and consists of two unoriented, fimbriated fallopian tubes (6.7 x 0.8 cm and 3.4 x 0.9 cm, respectively) and a nonfimbriated tubular structure measuring 4.0 x 0.4 cm. The longer fallopian tube has congested smooth serosa with no cystic structures identified. Sectioning reveals an unremarkable stellate lumen. The shorter fallopian tube has car, smooth serosa with two cystic structures measuring up to 0.8 cm in greatest dimension, filled with clear serous fluid. Sectioning reveals an unremarkable stellate lumen. The nonfimbriated tubular structure has car, wrinkled serosa with no cystic structures identified. Sectioning reveals an unremarkable pinpoint lumen. Cytology Supervisor sections are submitted as follows: A1: Longer fallopian tube to include entire fimbriae and cross sections. A2: [place] fallopian tube to include entire fimbriae and cross sections. A3: Cytology Supervisor nonfimbriated fragment. ([id number]) /FRR 09/06/2022 1949 Local . 01 Pathologist provided ICD-10: Z30.2 . 01 CPT . 289949 Specimen Comment: A courtesy copy of this report has been sent to [phone] Performed at: 01 [facility] [address] [facility], [place], [place] [id number] MD Onel Gagnon MD Phone: [phone]
[2022-09-05] MEDS: LACTATED RINGERS 1,000 ML 42 ML IV (08:17)
--- NOTE | 2022-09-05 09:01 | PM.PREOP ---
Pre-operative Note COVID-19 COVID-19 status: Negative Result date/Date tested (Pos, Neg/Pending): 09/04/22 Criteria for continued procedure: Non-surgical alternatives not available or appropriate per current SOC Interval Note History & Physical reviewed/Exam performed by Physician: Yes Changes to H&P: No
--- NOTE | 2022-09-05 09:06 | SUR.OPER ---
Lithotomy on padded OR bed, head on pillow, arms secured on padded arm boards at <90 degrees abduction. Legs secured in padded yellow fins stirrups.
[2022-09-05] MEDS: BUPIVACAINE 0.5% W/ EPI (PF) 30 ML VIAL INJ (09:56)
--- NOTE | 2022-09-05 10:35 | PM.GYNOP.1 ---
Operative Date/Time/Diagnoses Date of procedure: 09/05/22 Time of procedure: 09:50 Pre-op diagnosis: Request for sterilization Post-op diagnosis: same Procedure & Clinicians Procedure: Procedures Operation Date: 09/05/22 09:00 Actual Procedure Side Surgeon p Laparoscopic Salpingectomy Bilateral Bilateral Shay Wilkinson MD Indications: Nikki is a 31-year-old , LMP 08/11/2022, who has requested elective sterilization via bilateral laparoscopic salpingectomy.? HHS form 687 has been executed and the patient has been counseled regarding fact that this is a permanent procedure which will result in her irreversibly being unable to bear children without benefit of assisted reproductive technology.? After consideration of all options and with full understanding of the above, the patient is scheduled to undergo bilateral laparoscopic salpingectomy on 09/05/2022 and she presents today for her preoperative evaluation, counseling, and consent. Surgeon: Shay Wilkinson Anesthesia Type: General Operative Notes Findings: Normal pelvis. The upper abdomen is also normal to laparoscopic visualization. Closure Type: primary Specimen(s): left tube and right tube Estimated blood loss (mL): 5 Blood products transfused: none Procedure in detail: With the patient under satisfactory general anesthesia in the modified dorsal lithotomy position, the perineum, vagina, and abdomen were prepped and draped for IUD removal and laparoscopic bilateral salpingectomy. A pre-surgical safety time-out was then taken in accordance with [facility] Main OR protocols. The umbilicus was then infiltrated with 0.5% Marcaine with epinephrine and 1 cm vertical incision was made in the inferior aspect of the umbilicus. Veress needle was used to insufflate the abdomen with carbon dioxide and once appropriately insufflated, 5 mm bladeless trocar and sleeve were inserted through the incision. Proper placement of the sleeve was confirmed with laparoscopic visualization and insufflation of the abdomen continued. A 2nd and 3rd 5 mm laparoscopic port were placed in the right and left mid quadrants using a similar technique and using a 3 puncture technique, the abdomen and pelvis were visualized with the findings as noted above. The distal aspect of the left fallopian tube was then grasped with a grasping forceps and using a Power Seal device, fimbria ovarica was coagulated and divided the dissection using the Power Seal continuing across the mesosalpinx to the cornua where the base fallopian tube was coagulated and divided. The left fallopian tube was then removed through one of the ports and submitted pathologic specimen. Attention was then turned to the right adnexa with distal tube grasped with a grasping forcep. The Power Seal device was then used to coagulate fimbria ovarica and the dissection was carried across the mesosalpinx to the cornua where the fallopian tube on the right side was amputated at the cornua following coagulation proximal tube the Power Seal device. Pelvis was inspected and there were no abnormalities noted following bilateral salpingectomy. The pneumoperitoneum was then vented and the ports removed from the abdominal wall. Port incisions were then closed with 4-0 Monocryl using inverted interrupted stitches and skin glue was applied. Appropriate dressings were then applied, patient was awakened, and transferred to the PACU for a period of observation after having tolerated the procedure well. Complications: none Post-operative Condition: stable Disposition: PACU Plan for aftercare: Routine postoperative care with follow-up planned 2 weeks postop.
== END 2022-09-05 11:25 | disposition home or self-care (01) ==
PROVIDERS: Referring Provider Obstetrics & Gynecology; Visit Provider Obstetrics & Gynecology
PROC: 0UT74ZZ Resection of Bilateral Fallopian Tubes, Percutaneous Endoscopic Approach (ICD-10-PCS; CPT 58661; principal; 2022-09-05 09:00)
DX: Z30.2 Encounter for sterilization (principal); N83.8 Other noninflammatory disorders of ovary, fallopian tube and broad ligament
CPT/HCPCS: 58661; 81025; J2250; J2704; J3010

== ENCOUNTER → 2024-12-15 09:34 | Outpatient (CLI) | payer OTHER, SELFPAY ==
--- NOTE | 2024-12-15 09:35 | DI.US.S_ITS ---
LIMITED ULTRASOUND OF RIGHT BREAST: 12/15/2024 CLINICAL: Focal right breast pain. Comparison is made to exam dated: 12/15/2024 mammogram - . Real-time ultrasound of the right breast retroareolar was performed. [place] scale images of the real-time examination were reviewed. No significant abnormalities were seen sonographically in the right breast. IMPRESSION: NEGATIVE There is no sonographic evidence of malignancy. There is no abnormality seen in the right breast to correspond with the area of clinical concern and pain in the sub-areolar and anterior depth of the breast, however, recommend clinical follow up for persistent or worsening symptoms, or development of any clinically suspicious findings. Recommend initiating routine screening mammograms at age 40. Findings and recommendations were conveyed to the patient during today's evaluation. This exam was interpreted at Station ID: [id number]. Electronically Signed By: Brando Knutson M.D. aty/:12/15/2024 14:41:03 letter sent: Clinical Evaluation ACR BI-RADS Category 1: Negative
--- NOTE | 2024-12-15 09:35 | DI.MG.S_ITS ---
BILATERAL DIGITAL DIAGNOSTIC MAMMOGRAM 3D/2D: 12/15/2024 CLINICAL: Baseline exam. Right breast pain and redness. No prior exams were available for comparison. The breasts are heterogeneously dense, which may obscure small masses (category c / 51-75% glandular tissue). No significant masses, calcifications, or other findings are seen in either breast. IMPRESSION: INCOMPLETE: NEED ADDITIONAL IMAGING EVALUATION There is no abnormality seen in the right breast to correspond with the area of clinical concern, non-bloody discharge from the nipple and nipple pain in the sub-areolar depth, however, ultrasound is recommended for further evaluation and is scheduled to immediately follow this examination. Based on the Tyrer Cuzick model (a risk assessment model) the patient's lifetime risk is 6.6% and her 10 year risk is 0.4%. According to the ACR, ACS, and NCCN guidelines, an annual breast MRI exam along with mammogram is recommended if the patient's lifetime risk is 20% or greater. This exam was interpreted at Station ID: [id number]. NOTE: For mammograms, a report in lay terms will be sent to the patient. Approximately 15% of breast malignancies will not be visualized mammographically. In the management of a palpable breast mass, a negative mammogram must not discourage biopsy of a clinically suspicious lesion. Electronically Signed By: Brando Knutson M.D. aty/:12/15/2024 10:18:03 letter sent: Additional Imaging Needed ACR BI-RADS Category 0: Incomplete: Need Additional Imaging Evaluation
== END ==
PROVIDERS: Referring Provider Obstetrics & Gynecology; Visit Provider Obstetrics & Gynecology
DX: N64.4 Mastodynia (principal); R92.333 Mammographic heterogeneous density, bilateral breasts; R92.2 Inconclusive mammogram
CPT/HCPCS: 76642; 77066; G0279

== ENCOUNTER 2025-04-08 15:49 | Emergency (ER) | payer OTHER, SELFPAY ==
[2025-04-08 15:59] VITALS: BP 117/84; PULSE 102; PULSE 104; RESP 24; O2SAT 93; O2SAT 96; BMI 25.7
[2025-04-08 16:00] VITALS: PULSE 101; RESP 21; O2SAT 95
[2025-04-08] MEDS: ALBUTEROL/IPRATROPIUM 3 ML AMPUL INH ×2 (16:06→17:00)
[2025-04-08 16:30] VITALS: BP 107/60; PULSE 98; RESP 22; O2SAT 95
--- NOTE | 2025-04-08 16:43 | DI.RAD.S_ITS ---
PROCEDURE: XR CHEST 2V INDICATIONS: sob TECHNIQUE: 2 views of the chest were acquired. COMPARISON: None. FINDINGS: Surgical changes and devices: None. Lungs and pleura: Lungs are clear. No pleural effusions or pneumothorax. Mediastinum: Mediastinal contours are normal. Heart size is normal. Bones and chest wall: No suspicious bony abnormalities. Soft tissues appear unremarkable. IMPRESSION: No acute cardiopulmonary abnormality is seen. Approved by: Fly Bowen M.D. on 04/08/2025 at 16:14
--- NOTE | 2025-04-08 16:44 | ED.URI ---
HPI - URI/Sore Throat General Chief Complaint: Upper Respiratory Symptoms Stated Complaint: chest pain, cough Time Seen by Provider: 04/08/25 16:02 History of Present Illness HPI Narrative: 34-year-old female healthy with no significant medical history presents with nasal congestion, cough nonbloody, non productive shortness of breath, and wheezing started 2 days ago when she thought she started developing allergies got worse today. She patient reports her chest is tight and feels short of breath but no active chest pain. Denies fever chills sore throat nausea vomiting diarrhea or sick contacts. Other than what is stated 14 point review of system is negative. Related Data Previous Rx's ?Medication ?Instructions ?Recorded benzonatate 200 mg capsule 200 mg PO BID-TID PRN cough #30 04/08/25 caps prednisone 20 mg tablet 20 mg PO DAILY #5 tabs 04/08/25 Allergies Allergy/AdvReac Type Severity Reaction Status Date / Time ciprofloxacin (From Cipro) Allergy Severe Anaphylaxis Verified 04/08/25 15:59 Review of Systems Review of Systems ROS Unobtainable: All systems reviewed & are unremarkable except as noted in HPI and below Patient History Medical History (Updated 04/08/25 @ 18:00 by Jaret Burgos DO) COVID-19 virus infection (10/26/21) Surgical History (Updated 09/23/22 @ 08:41 by Shay Wilkinson MD) History of female sterilization Family History (Updated 05/15/22 @ 07:46 by Fior Yoon CNM) Father Diabetes mellitus Social History (Updated 05/15/22 @ 07:46 by Fior Yoon CNM) marital status: number of children: 3 household members: spouse, family and children lives independently: Yes caregiver/support person: No alcohol intake: current alcohol intake frequency: holidays/special occasions only Exam Narrative Exam Narrative: GENERAL: [34] year old patient appears stated age. Well-developed patient, in mild distress. HEAD: Atraumatic. Normocephalic. EYES: Pupils equal round and reactive. Extraocular motions intact. No scleral icterus. No injection or drainage. ENT: Nose without bleeding, purulent drainage. Throat without erythema, tonsillar hypertrophy or exudate. Airway patent. NECK: Trachea midline. Non tender CARDIOVASCULAR: Regular rate and rhythm without murmurs, gallops, or rubs. RESPIRATORY: Diffuse wheezing throughout bilaterally GASTROINTESTINAL: Abdomen soft, non-tender, nondistended. EXTREMITIES: No edema or joint tenderness. BACK: Nontender without deformity or crepitance. No flank tenderness. NEURO: AOx3. SKIN: No rash or erythema of visible areas Initial Vital Signs Initial Vital Signs: Vital Signs Pulse Rate 104 H 04/08/25 15:59 Respiratory Rate 24 04/08/25 15:59 Blood Pressure 117/84 04/08/25 15:59 Pulse Oximetry 93 04/08/25 15:59 Oxygen Delivery Method Room Air 04/08/25 15:59 Course Orders Ordered: ED Orders 04/08/25 16:43 CXR [XR chest 2V] Stat Discontinued Medications Albuterol/Ipratropium (Albuterol/Ipratropium 3 Ml Ampul) 3 ml INH NOW ONE Stop: 04/08/25 15:59 Last Admin: 04/08/25 16:06 Dose: 3 ml Documented By: MS Albuterol/Ipratropium (Albuterol/Ipratropium 3 Ml Ampul) 3 ml INH NOW ONE Stop: 04/08/25 16:44 Methylprednisolone (Methylprednisolone 125 Mg/2 Ml Vial) 125 mg IV NOW ONE Stop: 04/08/25 16:44 Vital Signs Vital signs: Vital Signs - 8 hr 04/08/25 15:59 04/08/25 15:59 04/08/25 16:00 Pulse Rate 104 H 102 H 101 H Respiratory Rate 24 21 Blood Pressure 117/84 Pulse Oximetry 93 96 95 Oxygen Delivery Method Room Air MDM - URI/Sore Throat Imaging Data Chest x-ray: Radiologist's Impression: [address] [address] XRay Report Signed Patient: Nikki Gold MR#: [id number] : 1990 Acct:[id number] Age/Sex: 34 / F Date of Service: 04/08/25 Loc: ED Accession Number: [id number] Procedure: XR chest 2V Ordering Provider: Jaret Burgos D.O. PROCEDURE: XR CHEST 2V INDICATIONS: sob TECHNIQUE: 2 views of the chest were acquired. COMPARISON: None. FINDINGS: Surgical changes and devices: None. Lungs and pleura: Lungs are clear. No pleural effusions or pneumothorax. Mediastinum: Mediastinal contours are normal. Heart size is normal. Bones and chest wall: No suspicious bony abnormalities. Soft tissues appear unremarkable. IMPRESSION: MDM Narrative Medical decision making narrative: All lab work vital signs nurse triage note medication list previous ER visits and all imaging studies reviewed. Chest x-ray did not show any acute process. Patient given DuoNeb x2 and Solu-Medrol 125 mg IV patient feels much better on re-examination. Differential diagnosis include pneumonia COVID flu RSV asthma reactive airway disease. DC home on albuterol inhaler, tessalon, and prednisone. Follow up PCP in 1 week if no improvement in symptoms. Discharge Plan Departure Patient Disposition: Home Clinical Impression: Acute bronchitis, viral Instructions: DI for Acute Bronchitis Activity Restrictions/Additional Instructions: Return with new or worsening symptoms. Take your medicine as directed. Follow up PCP in 1 week if no improvement in symptoms. Prescriptions: New prednisone 20 mg tablet 20 mg PO DAILY Qty: 5 0RF benzonatate 200 mg capsule 200 mg PO BID-TID PRN (Reason: cough) Qty: 30 0RF Stand Alone Forms: Patient Portal/API
[2025-04-08] MEDS: methylPREDNISolone 125 MG/2 ML VIAL IV (16:59)
[2025-04-08 17:00] VITALS: BP 124/60; PULSE 101; RESP 17; O2SAT 96
[2025-04-08 17:30] VITALS: BP 106/60; PULSE 123; RESP 19; O2SAT 94
[2025-04-08 18:00] VITALS: BP 108/62; PULSE 103; RESP 21; O2SAT 95
== END 2025-04-08 18:20 | disposition home or self-care (01) ==
PROVIDERS: Emergency Provider Family Medicine
DX: J20.8 Acute bronchitis due to other specified organisms (principal); R06.02 Shortness of breath
CPT/HCPCS: 36415; 71046; 96374; 99284; J2919